=== PATIENT | female | born 1970 | race Caucasian/White ===

== ENCOUNTER 2023-05-15 14:01 | Emergency (ER) | payer OTHER, SELFPAY ==
[2023-05-15 14:24] VITALS: BP 187/90
[2023-05-15 14:49] LABS: Urine Albumin Negative (Neg - Trace); Urine Bilirubin Negative (Negative); Urine Character Clear (Clear); Urine Color Yellow; Urine Glucose Negative (Negative); Urine Ketone Negative (Negative); Urine Leukocyte Negative (Negative); Urine Nitrite Positive (Negative); Urine Occult Blood Negative (Negative); Urine Urobilinogen Negative (Neg - 1+)
[2023-05-15 14:58] LABS: ALT (SGPT) 17 U/L (0-35); AST (SGOT) 22 U/L (14-36); Albumin 4.8 g/dl (3.5-5.0); Alkaline Phosphatase 65 U/L (38-126); Blood Urea Nitrogen 5 mg/dl (7-17); Calcium 8.9 mg/dl (8.4-10.2); Carbon Dioxide 23 mmol/L (22-30); Chloride 106 mmol/L (98-107); Glucose 107 mg/dl (70-99); Lipase 44 U/L (23-300); Sodium 136 mmol/L (135-145); Total Bilirubin 0.6 mg/dl (0.2-1.3); Total Protein 8.1 g/dl (6.3-8.2); eGFR > 60.00
[2023-05-15 14:59] LABS: % Basophils 0.8 % (0-2); % Eosinophils 0.3 % (0-6); % Immature Granulocytes 0.3 % (0-0.5); % Lymphocytes 18.6 % (20.5-51.1); % Monocytes 8.5 % (1.7-9.3); % Neutrophils 71.5 % (42.2-75.2); Absolute Basophils 0.1 10^3/uL (0-0.2); Absolute Lymphocytes 2.2 10^3/uL (1.2-3.4); Absolute Neutrophils 8.4 10^3/uL (1.4-6.5); Hematocrit 39.2 % (37.0-47.0); Hemoglobin 14.2 g/dL (12.0-16.0); Mean Corp Hgb Conc. 36.2 g/dL (33.0-37.0); Mean Corpuscular Hgb 31.4 pg (27.0-31.0); Mean Corpuscular Volume 86.7 fL (81.0-99.0); Mean Platelet Volume 10.1 fL (7.4-10.4); Nucleated Red Blood Cells % 0 %; Platelet Count 361 10^3/uL (130-400); Red Blood Cell Count 4.52 10^6/uL (4.20-5.40); Red Cell Dist. Width 12.3 % (11.5-14.5); White Blood Cell Count 11.7 10^3/uL (4.8-10.8)
[2023-05-15 15:23] LABS: Urine Red Blood Cell 0-2 /HPF (0-2); Urine Squamous Cell 0-2 /LPF (Few)
[2023-05-15 17:21] VITALS: BMI 28.2
--- NOTE | 2023-05-15 17:34 | ED.GENMED ---
History of Present Illness
General
Chief Complaint: Abdominal Pain
Source: patient
Exam Limitations: none
Time Seen by Provider: 05/15/23 17:09
Travel History
Have you had any contact with someone who has COVID-19?: No
Do you have any symptoms of coronavirus? Fever > 100 degrees, chills, cough, shortness of breath, sore throat, loss of taste or smell, muscle aches, or headache?: No
History of Present Illness
History of Present Illness:
53-year-old female otherwise healthy presents complaining of intermittent episodes of upper abdominal pain that seems to be postprandial. The pain seems to be more on the right side as well. She describes it as a bloating sensation. Also this
morning she developed urinary symptoms including burning when she goes and going more often. No fever. She is nauseous without vomiting. No chest pain. She does note social alcohol use but denies NSAID use and drinks a cup of coffee daily. She
denies any dark black or tarry stools.
Phy Exam
Physical Exam
Physical Exam:
General: Well-appearing female no acute respiratory distress
HEENT: Normocephalic atraumatic neck is supple
Heart: Regular rate and rhythm no murmurs
Lungs: Clear to auscultation bilaterally no wheezing
Abdomen: Soft slightly tender to the epigastric region and right upper quadrant negative Medeiros sign no guarding or rebound normal bowel sounds
Extremities: No cyanosis or edema
Skin: Warm no rash
Course
Orders/Labs/Results
Orders:
Orders
05/15/23 14:39
Complete Blood Count/With Diff Urgent
Comprehensive Metabolic Panel Urgent
Lipase Urgent
Urinalysis Reflex To Culture Urgent
Date Specimen was Collected: 05/15/23
Time Specimen was Collected: 14:31
Urine Microscopic Reflex Cult Urgent
Urine Culture Urgent
ADAM Source: U
Specimen Description:
Date Specimen was Collected: 05/15/23
Time Specimen was Collected: 14:31
05/15/23 17:33
US Abdomen Complete/Upper Urgent
Comment:
Reason For Exam: RUQ pain
05/15/23 20:09
CT Abd/pelvis W Iv Cont Urgent
Comment:
Reason For Exam: abdominal pain
Abnormal Lab Results
05/15/23
14:39
WBC 11.7 H 10^3/uL
(4.8-10.8)
MCH 31.4 H pg
(27.0-31.0)
Absolute Neuts (auto) 8.4 H 10^3/uL
(1.4-6.5)
Absolute Monos (auto) 1.0 H 10^3/uL
(0.1-0.6)
Lymphocytes % 18.6 L %
(20.5-51.1)
BUN 5 L mg/dl
(7-17)
Glucose 107 H mg/dl
(70-99)
Urine Nitrite (Reflex) Positive A
(Negative)
05/15/23 14:39
05/15/23 14:39
Vital Signs
Initial and Last Documented VS:
Initial Vital Signs
Pulse Resp BP Pulse Ox
97 20 187/90 98
05/15/23 14:24 05/15/23 14:24 05/15/23 14:24 05/15/23 14:24
Last Documented Vital Signs
Pulse Resp BP Pulse Ox
78 18 160/87 98
05/15/23 19:17 05/15/23 19:17 05/15/23 19:17 05/15/23 19:17
MDM/Problems Addressed
Differential Diagnosis Includes:
Abdominal pain. Differential could include gastritis versus constipation versus biliary colic versus diverticulitis
Check labs. Start with ultrasound. Consider CT if ultrasound negative. Offered pain medicine however patient declined at this time
*Critical Care Note
Total Time (30-74mins, 75-104mins- exclusive of procedures): Not Applicable
Update Note
Update Note:
Ultrasound shows cholelithiasis without signs of cholecystitis. White blood cell count slightly elevated 11.7. 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 Did perform CT scan of abdomen and pelvis which shows cholelithiasis and a 3.4 cm
left-sided ovarian cyst. No other acute intra-abdominal process. I suspect postprandial pain is from the gallstones. Recommend follow-up with general surgery. Also recommend follow-up with OB for repeat imaging of the pelvis to evaluate the
ovarian cyst
ED Attending Note
-
Portions of this chart may have been created with voice recognition software.� Occasional wrong word or��sound alike� substitutions may have occurred due to the inherent limitations of voice recognition software.
Discharge Plan
Departure
Patient Disposition: Home (Routine Discharge)
Date of Disposition: 05/15/23
Time of Disposition: 22:00
Patient with high blood pressure during this ER visit?: No
Discharge Problem:
Cholelithiasis
Instructions: Gallstones (DC)
Referrals:
Shikha Bruner PA-C [Family Provider] -
Elvis Palomares MD [Active] -
Activity Restrictions/Additional Instructions:
Please follow-up with general surgery for evaluation of your gallbladder. Sick with low-fat diet. Also there is an ovarian cyst noted on the CT scan. Please follow-up with gynecology for recheck.
Interventions
Interventions:
*Risk Screen - Suicide Last Done: 05/15/23 17:22
*General Assessment Last Done: 05/15/23 17:22
*Neglect/Abuse Screening Last Done: 05/15/23 17:22
ED- Fall Risk Assessment Last Done: 05/15/23 17:23
*ED COVID-19 Vaccine History Last Done: 05/15/23 17:22
LV-Rbhoah-Zmxbbghthm Assessment Last Done: 05/15/23 17:25
[2023-05-15 19:17] VITALS: BP 160/87
== END 2023-05-15 22:24 | disposition home or self-care (01) ==
LOC: EMR 14:01
PROVIDERS: Emergency Medicine; EMERGENCY PHYSICIAN Student in an Organized Health Care Education/Training Program; FAMILY PHYSICIAN Physician Assistant Medical
DX: K80.20 Calculus of gallbladder without cholecystitis without obstruction (principal); N83.202 Unspecified ovarian cyst, left side; R14.0 Abdominal distension (gaseous); R30.0 Dysuria; R35.0 Frequency of micturition
CPT/HCPCS: 99285; 74177; 76700; 80053; 81003; 81015; 83690; 85025; 87086; Q9967

== ENCOUNTER → 2023-06-07 07:52 | Outpatient (REF) | payer OTHER, SELFPAY | LOC: HWRAD 07:52 | PROVIDERS: ATTENDING PHYSICIAN Nurse Practitioner Adult Health; FAMILY PHYSICIAN Physician Assistant Medical | DX: N83.209 Unspecified ovarian cyst, unspecified side (principal); R10.2 Pelvic and perineal pain | CPT/HCPCS: 76830; 76856 ==

== ENCOUNTER → 2023-06-08 07:35 | Outpatient (REF) | payer OTHER, SELFPAY | LOC: HWWDC 07:35 | PROVIDERS: ATTENDING PHYSICIAN Nurse Practitioner Adult Health; FAMILY PHYSICIAN Physician Assistant Medical | DX: Z12.31 Encounter for screening mammogram for malignant neoplasm of breast (principal) | CPT/HCPCS: 77063; 77067 ==

== ENCOUNTER 2023-08-30 06:45 | Day surgery (SDC) | payer OTHER, SELFPAY ==
[2023-08-23 08:21] VITALS: BMI 26.4
--- NOTE | 2023-08-23 15:18 | SUR.OPER ---
Patients 5/6 ECG abnormal- reviewed By Dr. Gleason- no additional interventions required
[2023-08-30] VITALS (9 sets, daily range): BP systolic 139–165; BP diastolic 74–95; BMI 26.4
--- NOTE | 2023-08-30 07:26 | HP.FOC2 ---
Focused History & Physical
Chief Complaint
HPI:
Chief Complaint: Gallstones, right upper quadrant abdominal pain
HPI / Indication for Planned Procedure: Patient is a 53-year-old female recently seen in outpatient surgical evaluation with a history of recurrent postprandial upper abdominal pain. She has been having intermittent episodes of epigastric pain just
to the right of midline with associated tightness, bloating and distention. It occurs at various times throughout the day and often awaken her from sleep. Since changing to a low-fat diet she has noticed significant improvement in the frequency
and severity of her symptoms but she continues with occasional mild flares. Patient presents today for cholecystectomy.
Relevant Past Medical History: Other (Seasonal allergies)
Relevant Social History: Negative
Relevant Family History: Positive for (Multiple first-degree relatives who have had cholecystectomy for gallstones)
Relevant Past Surgical History: Negative
Review of Systems
Review of Pertinent Systems: All Systems Negative
Medication
See Medication form for detailed medications: Yes
Medication List (including Herbals & OTC):
Probiotic 1 cap PO DAILY 08/25/23
biotin 10,000 mcg capsule 10,000 mcg PO DAILY 08/25/23
collagen 1 dose PO DAILY 08/25/23
ibuprofen 200 mg tablet 200 mg PO Q6H PRN pain 08/25/23
loratadine-pseudoephedrine ER 10 mg-240 mg tablet,extended [id number] (Claritin-D 24 Hour) 1 tab PO DAILY 08/25/23
pseudoephedrine-guaifenesin ER 60 mg-600 mg tablet,extend release 12hr (Mucinex D) 1 tab PO BID PRN Sinus Congestion 08/25/23
Medications Reviewed: Yes
Allergies and Reactions
Patient has Allergies: No
Noted Allergies and Reactions:
Allergy/AdvReac Type Severity Reaction Status Date / Time
No Known Allergies Allergy Unverified 08/25/23 09:23
Pertinent Physical Exam
All Other Systems: Negative
Head/Neck: Normal
Lungs: Normal
Heart: Normal
Abdomen: Normal
Extremities: Normal
Neurological: Normal
Diagnosis / Assessment
54-year-old female presenting for scheduled cholecystectomy in the setting of symptomatic cholelithiasis/chronic calculus cholecystitis
Plan / Procedure
RAL cholecystectomy
Anesthesia/Sedation to be done by Anesthesia Provider: Yes
[2023-08-30] MEDS: TYLENOL 1000 MG PO (10:22)
[2023-08-30] MEDS: NORMOSOL-R 1000 IV (10:38)
--- NOTE | 2023-08-30 11:46 | W.SUR.PREOP ---
Pre-Operative Surgical Note
-
I have examined this patient prior to the performance of the scheduled procedure.
The patient's condition is unchanged from the time of the current History and
Physical and the patient is able to undergo the scheduled procedure.
--- NOTE | 2023-08-30 14:11 | W.IMMPOSTOP ---
Addendum entered and electronically signed by Elvis Palomares MD 08/30/23 14:21:
#[id number]
Original Note:
Surgical Immed Post Op Note
-
Primary Surgeon: Marielle
Assisting Surgeon: Octavio Wolf PGY 1
Pre-op Diagnosis: CCC
Post-op Diagnosis: CCC
Procedure Performed: RAL cholecystectomy
Anesthesia Type: GETA + 0.25% Marcaine
Specimen / Cultures: GB
Estimated Blood Loss: 6mL
Complications: none immediate
Operative Findings: Distended GB filled with stones. No adhesions. Cystic duct controlled with 2 proximal Lg Weck clips; anterior cystic artery and posterior cystic artery branch each controlled with Lg Weck clip. Gallbladder extracted at
infraumbilical robo site enlarged to ~15mm. Fascia closed with O-Vicryl on endoclose x 2.
== END 2023-08-30 16:34 | disposition home or self-care (01) ==
LOC: SDS 06:45
PROVIDERS: ATTENDING PHYSICIAN Surgery; FAMILY PHYSICIAN Physician Assistant Medical
DX: K80.10 Calculus of gallbladder with chronic cholecystitis without obstruction (principal)
CPT/HCPCS: 47562; 88304; 36415; 93005